=== PATIENT | female | born 1985 | race Caucasian/White ===

== ENCOUNTER 2020-07-04 08:45 | Outpatient (CLI) | payer BC, SELFPAY ==
[2020-07-04 17:19] LABS: SARS-CoV-2 RNA PCR Negative
== END 2020-07-04 08:46 | disposition home or self-care (01) ==
LOC: ANHCOVIDDT 08:46
PROVIDERS: Visit Provider Obstetrics & Gynecology
DX: Z01.812 Encounter for preprocedural laboratory examination (principal); Z20.828 Contact with and (suspected) exposure to other viral communicable diseases
CPT/HCPCS: 87635; C9803; U0003

== ENCOUNTER 2020-07-05 01:38 | Day surgery (SDC) | payer BC, SELFPAY ==
[2020-07-04 10:38] VITALS: BMI 27.2
--- NOTE | 2020-07-05 14:09 | WPDANESEPPF ---
Anes - Initial Pre Proc Eval Procedure: Operation Date: 07/05/20 16:00 Proposed Procedures p Suction Dilatation and Curettage - Armando Seaman MD Date/Time: 07/05/20 14:09 Surgeon: Armando Seaman MD Pre Op Diagnosis: missed AB Patient Data Age: 34 Gender: F Height: 1.7 m Weight: 79 kg Allergies Allergy/AdvReac Type Severity Reaction Status Date / Time No Known Allergies Allergy Verified 07/05/20 14:04 Home Medications Medication Instructions Recorded Confirmed Type dextroamphetamine-amphetamine 10 mg PO QAM 07/04/20 07/05/20 History prenat vit-iron [id number] 1 tablet PO DAILY 07/04/20 07/05/20 History Patient hx anesthesia problems: none Family hx anesthesia problems: none PMFSH Past Medical History Medical History (Updated 07/05/20 @ 14:10 by Sebastián Tarango, ) Attention deficit disorder predominant inattentive type Chronic anxiety Depression Panic attack Family History Family History (Updated 05/02/19 @ 11:08 by DOCTOR UNKNOWN) Grandparent Family history of malignant neoplasm Family history of lung cancer Social History Social History Smoking packs per day: 0.25 Smoking cigarettes per day: 5.0 Years smoked: 5 Smoking pack-years: 1.25 Smoking status: Former smoker Smoking end date: 01/16/07 Alcohol intake: current Drinks per week: 2 Substance use: never Living arrangements: with family Additional living arrangements comments: SPOUSE AND DAUGHTER Spiritual care concerns: No Anes - Eval Final PreProcedure Day of Procedure 07/05/20 14:09 Patient weight: overweight Heart: regular rate and rhythm Lungs: clear to auscultation and normal air movement Airway: Mallampati scale class II Neurological: alert and oriented Last oral intake: >/= 8 hours ASA classification: II Emergent: no Anesthetic plan: proceed Anesthesia type and monitoring: general GIVS and standard monitoring Informed Consent: The patient's anesthetic plan and its attendant risks and benefits were discussed with the patient/family/POA. Questions were solicited and answers provided to the satisfaction of the patient/family/POA.
[2020-07-05 14:20] VITALS: BP 140/85; PULSE 97; RESP 16; TEMP 37.6; O2SAT 100
[2020-07-05] MEDS: LACTATED RINGERS 1,000 ML 30 ML IV CONT (14:32)
[2020-07-05] MEDS: ACETAMINOPHEN 500 MG TABLET 1000 MG PO (14:33)
--- NOTE | 2020-07-05 14:37 | WPDHPUPDATE1 ---
History and Physical Update Update Date/Time: 07/05/20 14:37 History and Physical has been reviewed, including an updated exam of the patient. There are NO changes in the patient's condition. Risks, benefits, and alternatives have been discussed and questions answered. Patient agrees to proceed with procedure.
--- NOTE | 2020-07-05 15:21 | SUR.PREOP ---
up to bathroom.
[2020-07-05] MEDS: KETOROLAC 15 MG/ML VIAL (*BKC) IV PUSH (15:25)
--- NOTE | 2020-07-05 15:43 | P.OP_ITS ---
Procedure Note - Detailed Date of procedure: 07/05/20 Pre-op diagnosis: missed AB Post-op diagnosis: same Procedure performed: Suction D&C Description of procedure: The patient was taken the operating room. She has prepped and draped in dorsal lithotomy position after induction of mac anesthesia. A speculum was placed in the vagina. The cervix was grasped with a tenaculum. The cervix was injected at 3 and 9:00 a.m. with 1% lidocaine. The cervix was dilated up to 8 mm using Jon dilators. An 8 curved plastic suction curette was then applied to the intrauterine cavity. All of the surfaces in the intrauterine cavity were curettage under VAC. A sharp medium-size curette was then used to curettage all the surfaces to confirmed the removal of all the products conception. When all surfaces for bleed to be clean the curette was r emoved. The suction curette was then reapplied to remove all the debris. The procedure was terminated. The tenaculum was removed. The speculum was removed. The patient tolerated the procedure well. She was taken recovery room in stable condition. Anesthesia: MAC Surgeon: Armando Seaman MD Estimated blood loss (mL): 25 Drains: No Packing: No Pathology: yes Complications: No immediate complications Condition: stable Disposition: PACU Findings: Normal vulva vagina and cervix. The moderate amounts of products conception. 8 cm uterus.
[2020-07-05 15:44] VITALS: BP 126/69; PULSE 84; RESP 14; O2SAT 97
[2020-07-05 16:10] VITALS: BP 125/71; PULSE 57; RESP 14; O2SAT 99
[2020-07-05 16:40] VITALS: BP 125/70; PULSE 54; RESP 14; O2SAT 100
[2020-07-05 16:50] VITALS: BP 120/69; PULSE 64; RESP 16
== END 2020-07-05 16:59 | disposition home or self-care (01) ==
PROVIDERS: PCP Family Medicine; Visit Provider Obstetrics & Gynecology
PROC: (CPT 59820; principal; 2020-07-05 16:00)
DX: O02.1 Missed abortion (principal); F98.8 Other specified behavioral and emotional disorders with onset usually occurring in childhood and adolescence; F41.9 Anxiety disorder, unspecified; F32.9 Major depressive disorder, single episode, unspecified; F41.0 Panic disorder [episodic paroxysmal anxiety]; Z87.891 Personal history of nicotine dependence
CPT/HCPCS: 59820; 88305; A9270; C9803; J1885; J2250; J2704; J3010; J7120; U0003

== ENCOUNTER 2021-07-21 11:24 | Emergency (ER) | payer BC, SELFPAY ==
[2021-07-21 11:30] VITALS: BP 130/86; PULSE 90; RESP 16; TEMP 37.4; O2SAT 100
--- NOTE | 2021-07-21 12:09 | ED.URI ---
HPI - URI/Sore Throat General Chief Complaint: Upper Respiratory Infection Stated Complaint: congestion sore throat ear pain cough Time Seen by Provider: 07/21/21 12:09 Source: patient and family Mode of arrival: ambulatory Limitations: no limitations History of Present Illness HPI Narrative: Patient presents with a 2-week history of sinus congestion nasal congestion cough and scratchy throat. No fever no shortness of breath no chest pain. MD elicited complaint: sore throat and nasal congestion Related Data Home Medications Medication Instructions Recorded Confirmed dextroamphetamine-amphetamine 20 mg PO QAM 07/04/20 07/21/21 Allergies Allergy/AdvReac Type Severity Reaction Status Date / Time No Known Allergies Allergy Verified 07/21/21 11:47 Review of Systems Review of Systems: CONSTITUTIONAL: Denies chills, or sweats. Reports fever and generalized body aches EYES: Denies visual changes, redness, or discharge. ENT: Denies otalgia. Reports nasal congestion runny nose and sore throat CARDIOVASCULAR: Denies chest pain, palpitations, or edema. RESPIRATORY: Denies dyspnea. Reports occasional cough GASTROINTESTINAL: Denies abdominal pain, nausea, vomiting, or diarrhea. GENITOURINARY: Denies dysuria or hematuria. SKIN: Denies rash or itching. MUSCULOSKELETAL: Denies back pain, joint pain, or myalgia. Reports generalized body aches NEUROLOGIC: Denies headache, numbness, or weakness. PSYCHIATRIC: Denies anxiety or depression. Allergic/Immunologic: Comments: At time of signature, agree with nursing past medical, surgical, social and family history. There is no relevant family history pertinent to the presenting complaint PMFSH Past Medical History Medical History (Updated 07/21/21 @ 12:14 by MARNI Mchugh) Attention deficit disorder predominant inattentive type Chronic anxiety Depression Panic attack Family History Family History (Updated 05/02/19 @ 11:08 by DOCTOR UNKNOWN) Grandparent Family history of malignant neoplasm Family history of lung cancer Social History Social History Smoking packs per day: 0.25 Smoking cigarettes per day: 5.0 Years smoked: 5 Smoking pack-years: 1.25 Smoking status: Former smoker Smoking end date: 01/16/07 Alcohol intake: current Drinks per week: 2 Substance use: never Additional living arrangements comments: SPOUSE AND DAUGHTER Spiritual care concerns: No Exam Narrative: The patient is a well-developed, well-nourished in no acute distress. SKIN: Skin is warm and dry without erythema, swelling or exudate. There is good turgor. No tenting. HEAD: Atraumatic. Normocephalic. No temporal or scalp tenderness. EYES: Moist and bright. Sclera and conjunctivae normal. No discharge. PERRLA. Extraocular motions intact. Gross visual acuity intact. EARS: Pinna is normal shape and contour. Clear external auditory canals. TM pearly ramos with good cone of light, no erythema or suppuration. Bilateral cerumen noted no gross hearing deficit. NOSE: pink, moist mucosa with good air movement. Clear rhinorrhea without nasal flaring. Septum midline. Mild maxillary sinus tenderness Mouth: moist mucous membranes. THROAT; mild erythema noted to posterior oropharynx with moderate postnasal drainage. Without exudate or ulceration.. Uvula midline. Normal movement of soft palate. NECK: Supple and nontender with full range of motion without discomfort. No meningeal signs. LUNGS: Equal and bilateral breath sounds without wheezes, rales or rhonchi. CHEST: The chest wall is without retractions or use of accessory muscles. HEART: Has a regular rate and rhythm without murmur, gallops, click or rub. ABDOMEN: Soft, nontender with positive active bowel sounds. No rebound tenderness. EXTREMITIES: Without cyanosis, clubbing or edema. Equal 2+ distal pulses and 2 second capillary refill noted. NEUROLOGIC: alert, active, . The patient moves all extremities with normal muscle streng
== END 2021-07-21 12:20 | disposition home or self-care (01) ==
PROVIDERS: Emergency Provider Nurse Practitioner Family
DX: J32.9 Chronic sinusitis, unspecified (principal); Z87.891 Personal history of nicotine dependence; F98.8 Other specified behavioral and emotional disorders with onset usually occurring in childhood and adolescence
CPT/HCPCS: 99213; G0463

== ENCOUNTER → 2021-09-29 16:56 | Outpatient (CLI) | payer BC, SELFPAY ==
--- NOTE | ~2021-09-29 | XR_ITS ---
XR lumbar spine min 4V DATE: 09/29/2021 17:24 INDICATION: Left lumbago, sciatica TECHNIQUE: AP, lateral, bilateral oblique views, coned lateral lumbosacral view COMPARISON: None FINDINGS: Normal alignment of the lumbar vertebrae. Pedicle distances appears somewhat short; cannot exclude primary lumbar spinal stenosis; consider CT lumbar spine correlation. No fracture or bone destruction is detected. No spondylolysis or spondylolisthesis. Lumbar and lumbosacral interspaces appear well preserved. Lumbar and included lower thoracic pedicles are intact. The sacroiliac joints appear normal. IMPRESSION: Cannot exclude primary lumbar spinal stenosis; otherwise unremarkable examination; consid er CT lumbar spine examination as clinically indicated Reviewed, dictated and finalized at location A. IMPRESSION: Cannot exclude primary lumbar spinal stenosis; otherwise unremarkab le examination; consider CT lumbar spine examination as clinically indicated
--- NOTE | ~2021-09-29 | XR_ITS ---
EXAMINATION: XR hip LT 2V w AP pelvis DATE: 09/29/2021 17:24 INDICATION: Left hip pain. TECHNIQUE: An anteroposterior view of the pelvis and 2 views of left hip were obtained. COMPARISON: None. FINDINGS: Bone alignment is normal. No fracture. There is mild osteoarthritis of the hips. Osteitis p ubis is noted. IMPRESSION: 1. Mild osteoarthritis of the hips. Reviewed, dictated and finalized at location A.
== END ==
PROVIDERS: PCP Family Medicine; Visit Provider Family Medicine
DX: M54.42 Lumbago with sciatica, left side (principal); M16.0 Bilateral primary osteoarthritis of hip
CPT/HCPCS: 72110; 73502

== ENCOUNTER 2021-11-11 14:18 | Outpatient (CLI) | payer BC, SELFPAY ==
--- NOTE | 2021-11-23 17:00 | WPDHOMESLEEP ---
Sleep Study - Home Unattended Date of Study: 11/11/21 Ordering Provider: Feng Marroquin MD Interpreting Provider: Corinne Smith MD Home Sleep Study Type: Apnea Link Air Height: 1.7 m Weight: 68.039 kg Body Mass Index: 23.5 Neck Circumference (inches): 13.5 [place]: 4 Reason for Sleep Study Nonrestorative sleep Sleep History Omaira Craig is a 36 year old female who does not wake up feeling refreshed, no matter how much sleep she gets. This started 5 years ago, and has been worse over the last 2 years. She wakes up multiple times during the night. he occasionally wakes from sleep feeling short of breath. She never awakens at night with heartburn, belching or coughing. Sje frequently snores, only occasionally loudly enough that others complain. She frequently has trouble sleeping with a cold. She occasionally wakes up gasping. She frequently has breathing problems at night. She rarely sweats excessively at night. She rarely notices her heart pounding or beating irregularly at night. She occasionally falls asleep n the day, rarely falls asleep involuntarily, never falls asleep while driving. She does not have loss of muscle tone with strong emotion. She occasionally has daytime difficulties in the day due to excessive sleepiness. She is a [id number] mom. She does not feel paralyzed on waking or falling asleep. She does not have vivid dreamlike scenes on waking or falling asleep. She is not afraid to go to sleep. She has occasional nightmare, and occasionally remembers her dreams. She occasionally has racing thoughts, sadness, or and depression. Frequently she has anxiety. She rarely has muscular tension. She rarely notices parts of her body jerking, and she rarely kicks at night. She does not have achy or crawly feelings in her legs. She rarely has leg pain at night. She does not have morning jaw pain. She frequently grinds her teeth during sleep. She is rarely bothered by pain in the day, rarely awakened by pain at night. She occasionally wakes up feeling stiff in the am, with sore achy muscles or pain in the neck and spine. Normal bedtime is 10:00 p.m., taking 10 minutes or longer to fall asleep, waking 5 times at night for a minute or two. She moves around to get more comfortable, and returns to sleep. She wakes in the morning at 7:30 am. On weekends, bedtime is 11:00 p.m., and wake up time is 8:00 a.m.. She does not take naps, and a short naps is not refreshing. She is drowsy for 4 hours or longer after waking. She has memory and concentration problems. She has lost 20 lb in the last year. Habits: Former smoker. Caffeine, 1 cup a day. No alcohol or recreational drugs. [facility] Past Medical History Medical History Acute pain of left hip (~09/19/21) x-ray 09/29/2021 with mild osteoarthritis of both hips. Attention deficit disorder predominant inattentive type BMI 26.0-26.9,adult Chronic anxiety Chronic low back pain with left-sided sciatica (~09/19/21) x-ray of the lumbar spine on 09/29/2021 reveals pedicle distance shorter than normal with possible primary spinal stenosis with CT suggested COVID-19 (~07/2021) mild case of COVID-19 after vaccinated. Depression Encounter for wellness examination in adult Fatigue Hypersomnia Panic attack Vitamin B12 deficiency anemia (10/06/21) Vitamin B12 slightly low at 390 with goal greater than 400 on 10/06/2021 with normal hemoglobin Family History Family History Grandparent Family history of malignant neoplasm Family history of lung cancer Social History Social History (Updated 11/23/21 @ 17:20 by Corinne Smith MD) Smoking packs per day: 0.25 Smoking cigarettes per day: 5.0 Years smoked: 5 Smoking pack-years: 1.25 Smoking status: Former smoker Smoking end date: 01/16/07 Alcohol intake: current Drinks per week: 2 Substance use: never Additional living arr
[2021-11-23 18:39] VITALS: BMI 23.5
== END 2021-11-12 08:53 | disposition home or self-care (01) ==
LOC: ANHCSM 14:18
PROVIDERS: PCP Family Medicine; Visit Provider Family Medicine
DX: G47.10 Hypersomnia, unspecified (principal); R06.83 Snoring
CPT/HCPCS: 95806

== ENCOUNTER 2021-12-04 07:30 | Outpatient (RCR) | payer BC, SELFPAY ==
--- NOTE | 2021-10-23 17:35 | PTOPEVAL ---
Thank you for referring Omaira Craig to [facility].? The patient is scheduled to be seen for therapy?2 x/week for 6 weeks. Please review, sign, date and return this plan of care PANCHO. I agree with and certify that the following plan of care is medically necessary. Referring Physician Date Attending Provider: Feng Marroquin MD Diagnosis left hip pain, low back pain Onset 09/09 Cause running Additional Evaluation Detail history of left tibia fracture during VARSHA class ~10 yrs ago Subjective Information Reports left hip pain and Query Text:As Reported By Patient/ limping started after trying a Family running program for exercise. She reports pain is a dull ache pain with activity. She denies any back pain. Increased symptoms with heavier activities, loner walking, fitness program, hopping and steps. Pain Assessment Left Hip(s) Reported Pain Level 0 Pain Description Aching,Dull Pain Frequency Acute Lowest Pain Intensity 0 Greatest Pain Intensity 3 Lower Extremity Muscle Strength Testing General Lower Extremity Strength Gross Lower Extremity Strength 5/5 sohan LE except hip abd 3/5 Muscle Length Testing Muscle Length Testing Alex Test Shortened Muscles Short (R) Iliopsoas,Short (L) Iliopsoas,Short (R) Rectus Femoris,Short (L) Rectus Femoris Piriformis w/Hip Flexion >90 Degrees (R) WFL,(L) WFL Right Straight Leg Raise Muscle Length ( 70 degrees) Left Straight Leg Raise Muscle Length ( 60 degrees) Left Hamstring Length -50(90 - 90 Position) Right Hamstring Length -30:(90 - 90 Position) Posture Standing Position Thoracic Spine Posture Flexible Scoliosis on (L) Shoulder Posture (L) Rounded,(R) Rounded Pelvis Posture (R) Rotated Anterior,(L) Rotated Posterior Additional Posture Comments left pelvis retracted, left foot post to right supine: right pelvis ant rotation Palpation Assessment Palpation tenderness noted on sohan iliopsoas left > right Special Test-Spine Lumbar Spine Special Tests Crossed Straight Leg Raise Test Negative Right,Negative Left Straight Leg Raise Test Negative Right,Negative Left Special Tests-Lower Extremity Hip Special Tests Trendelenburg Sign Positive Left,Positive Right
--- NOTE | 2021-11-20 08:49 | PCPTNOTE ---
Patient called & cancelled scheduled appointment this date due to sickness.
--- NOTE | 2021-12-04 08:11 | PTOPEVAL ---
Physical Therapy Discharge Summary Thank you for referring Omaira Craig to [facility].?Omaira referred to therapy due to acute left hip pain and low back pain.She has attended 7 therapy visits from 10/23/21 to 12/04/21. As a result of skilled therapy services she reports improved pain, improved tolerance with daily task and fitness program and heavier task at home. She demonstrates improved posture position and pelvic alignment impairment, improved sohan hip abd weakness, trunk/LE control with functional movement and ambulation on all surfaces. LEFS: 38% impaired at eval and 3.75% impaired at update Modified Oswestry: 0% impaired at eval and update Assessment: Omaira presents to therapy with improved limitations and symptoms, improved function and improved pain level at rest and with fitness program. She has achieved her therapy goals. Will DC skilled therapy services at this time. Please review, sign, date and return this discharge summary PANCHO. I agree with and certify that the following plan of care is medically necessary. Referring Physician Date Attending Provider: Feng Marroquin MD Diagnosis left hip pain, low back pain Onset 09/09 Cause running Additional Evaluation Detail history of left tibia fracture during VARSHA class ~10 yrs ago Subjective Information Reports significantly improved Query Text:As Reported By Patient/ back/hip pain with all Family activities. She is able to walk without pain. Increased pain with longer walking distances. States she is more aware of her posture and body position with daily task and lifting. Pain Assessment Left Hip(s) Reported Pain Level 0 Pain Frequency Intermittent Lowest Pain Intensity 0 Greatest Pain Intensity 2 Pain Aggravating Factors Walking Lumbar ROM Lumbar ROM Lumbar Flexion Active Floor:Hands to: Lumbar Comments WNL trunk motion all directions without pain Lower Extremity Muscle Strength Testing General Lower Extremity Strength Gross Lower Extremity Strength 995/5 sohan LE except hip abd 4- /5 Muscle Length Testing Muscle Length Testing Alex Test Shortened Muscles Short (R) Iliopsoas,Short (L) Iliopsoas,Short (R) Rectus Femoris,Short (L) Rectus Femoris Piriformis w/Hip Flexion >90 Degrees (R) WFL,(L) WFL Right Straight Leg Raise Muscle Length ( 70 degrees) Left Straight Leg Raise Muscle Length ( 65 degrees) Left Hamstring Length -50(90 - 90 Position) Right Hamstring Length -50:(90 - 90 Position) Special Tests-Lower Extremity Trendelenburg Sign Negative Right,Positiv
== END 2021-12-04 16:18 | disposition home or self-care (01) ==
LOC: ANHPT 07:30
PROVIDERS: PCP Family Medicine; Visit Provider Family Medicine
DX: M54.42 Lumbago with sciatica, left side (principal); G89.29 Other chronic pain; M25.552 Pain in left hip
CPT/HCPCS: 97110; 97112; 97140; 97161; 97530

== ENCOUNTER 2021-12-08 08:03 | Outpatient (CLI) | payer BC, SELFPAY ==
--- NOTE | 2021-12-18 15:11 | WPDSLEEPSTUD ---
Sleep Study Date of Study: 12/08/21 Ordering Provider: Feng Marroquin MD Interpreting Physician: Corinne Smith MD Sleep Study Type: Polysomnogram Height: 1.7 m Weight: 68.039 kg Body Mass Index: 23.5 Neck Circumference (inches): 13.5 [place]: 5 Reason for Sleep Study * Home Sleep Test using ApneaLink November 11, 2021 with normal AHI 0.6 and snoring, symptoms out of proportion to the findings on the home sleep test; she presents for in-lab sleep study Sleep History Omaira Craig is a 36 year old female who does not wake up feeling refreshed, no matter how much sleep she gets. This started 5 years ago, and has been worse over the last 2 years. She wakes up multiple times during the night. She occasionally wakes from sleep feeling short of breath. She never awakens at night with heartburn, belching or coughing. She frequently snores, only occasionally loudly enough that others complain. She frequently has trouble sleeping with a cold. She occasionally wakes up gasping. She frequently has breathing problems at night. She rarely sweats excessively at night. She rarely notices her heart pounding or beating irregularly at night. She occasionally falls asleep n the day, rarely falls asleep involuntarily, never falls asleep while driving.? She does not have loss of muscle tone with strong emotion. She occasionally has daytime difficulties due to excessive sleepiness. She is a [id number]-[id number] mom. She does not feel paralyzed on waking or falling asleep. She does not have vivid dreamlike scenes on waking or falling asleep. She is not afraid to go to sleep. She has occasional nightmare, and occasionally remembers her dreams. She occasionally has racing thoughts, sadness, or and depression.? Frequently she has anxiety.? She rarely has muscular tension. She rarely notices parts of her body jerking, and she rarely kicks at night. She does not have achy or crawly feelings in her legs. She rarely has leg pain at night. She does not have morning jaw pain. She frequently grinds her teeth during sleep. She is rarely bothered by pain in the day, rarely awakened by pain at night. She occasionally wakes up feeling stiff in the morning, occasionally with sore, achy muscles or pain in the neck and spine. Normal bedtime is 10:00 p.m., taking 10 minutes or longer to fall asleep, waking 5 times at night for a minute or two. She moves around to get more comfortable, and she returns to sleep. She wakes in the morning at 7:30 am. On weekends, bedtime is 11:00 p.m., and wake up time is 8:00 a.m.. She does not take naps, and a short nap is not refreshing. She is drowsy for 4 hours or longer after waking. She has memory and concentration problems. She has lost 20 lb in the last year.? Habits: Former smoker. Caffeine, 1 cup a day. No alcohol or recreational drugs. [facility] Past Medical History Medical History (Updated 12/18/21 @ 16:18 by Corinne Smith MD) Acute pain of left hip (~09/19/21) x-ray 09/29/2021 with mild osteoarthritis of both hips. Attention deficit disorder predominant inattentive type BMI 26.0-26.9,adult Chronic anxiety Chronic low back pain with left-sided sciatica (~09/19/21) x-ray of the lumbar spine on 09/29/2021 reveals pedicle distance shorter than normal with possible primary spinal stenosis with CT suggested COVID-19 (~07/2021) mild case of COVID-19 after vaccinated. Depression Encounter for wellness examination in adult Fatigue Hypersomnia home sleep study 11/11/2021 was negative. Panic attack Vitamin B12 deficiency anemia (10/06/21) Vitamin B12 slightly low at 390 with goal greater than 400 on 10/06/2021 with normal hemoglobin Family History Family History Grandparent Family history of malignant neoplasm Family history of lung cancer Social History Social History Smoking packs per day: 0.25 Smoking cigarettes per day: 5.0 Years
[2021-12-18 16:26] VITALS: BMI 23.5
== END 2021-12-09 06:48 | disposition home or self-care (01) ==
LOC: ANHCSM 08:04
PROVIDERS: PCP Family Medicine; Visit Provider Internal Medicine Critical Care Medicine
DX: G47.30 Sleep apnea, unspecified (principal); G47.61 Periodic limb movement disorder
CPT/HCPCS: 95810